=== PATIENT | female | born 1975 | race African-American/Black ===

== ENCOUNTER 2019-08-09 17:31 | Emergency (ER) | payer OTHER ==
[~2019-08-09] VITALS: Ht 177.8 cm; Wt 121.1 kg
[~2019-08-09 17:31] MED LIST: CIPROFLOXACIN500 M1 PO; IBUPROFEN 600600 M1 PO; NORCO 5-325 TA1 EACH PO; ZOFRAN ODT4 MG PO
[2019-08-09 18:20] VITALS: BP 148/70
[2019-08-09] MEDS ORDERED: BACTRIM DS TAB1 EACH PO (18:20)
[2019-08-09] MEDS ORDERED: IBUPROFEN 800800 M1 PO (18:20)
== END 2019-08-09 18:20 ==
LOC: ER 17:31
DX: L03.012 Cellulitis of left finger (principal); Z86.2 Personal history of diseases of the blood and blood-forming organs and certain disorders involving the immune mechanism